=== PATIENT | female | born 1985 | race Caucasian/White ===

== ENCOUNTER → 2019-06-03 | Outpatient (CLI) | payer OTHER ==
[2019-06-03 14:25] LABS: BASO # 0.1 10^3/uL (0.0-0.2); BASO % 0.8 % (0.0-1.0); EOS # 0.1 10^3/uL (0.0-0.5); HEMATOCRIT 40.6 % (36.0-47.0); HEMOGLOBIN 13.6 g/dl (12.0-15.5); LYMPH # 2.3 10^3/uL (1.5-5.0); LYMPH % 18.2 % (24.0-44.0); MEAN CORPUSCULAR HEMOGLOBIN 30.8 pg (27.0-33.0); MEAN CORPUSCULAR HGB CONC 33.5 g/dl (32.0-36.5); MEAN CORPUSCULAR VOLUME 92.1 fl (80.0-96.0); MONO # 0.9 10^3/uL (0.0-0.8); MONO % 7.4 % (0.0-5.0); NEUTROPHILS % 71.9 % (36.0-66.0); PLATELET COUNT, AUTOMATED 421 10^3/uL (150-450); RED BLOOD COUNT 4.41 10^6/uL (4.00-5.40); WHITE BLOOD COUNT 12.5 10^3/uL (4.0-10.0)
[2019-06-03 15:14] LABS: HEPATITIS C VIRUS ABY INDEX 0.1 INDEX (<0.8); HIV 1&2 SCREEN CENTAUR NEGATIVE (NEGATIVE); RUBELLA IgG QUALITATIVE IMMUNE (IMMUNE)
[2019-06-03 15:21] LABS: CHLAMYDIA DNA AMPLIFICATION NEGATIVE (NEGATIVE); GC DNA AMPLIFICATION NEGATIVE (NEGATIVE)
== END ==
LOC: M SMT 10:27
PROVIDERS: ATTEND Advanced Practice Midwife
DX: Z34.81 Encounter for supervision of other normal pregnancy, first trimester (principal); Z3A.00 Weeks of gestation of pregnancy not specified

== ENCOUNTER → 2019-07-05 | Outpatient (CLI) | payer OTHER ==
--- NOTE | 2019-07-05 10:04 | REP ---
OB ULTRASOUND: Real-time sonographic evaluation of the gravid uterus performed. There is a single living intrauterine gestation. The estimated gestational age is 18 weeks 2 days with EDC 12/04/2019. Today's measurements indicate appropriate growth. Biometry and Growth: BPD 41 mm = 18 weeks 4 days, 57th percentile HC 148 mm = 15 weeks 6 days, 35th percentile AC 129 mm = 18 weeks 3 days, 53rd percentile FL 25 mm = 18 weeks 4 days, 27th percentile HC/AC ratio 1.15 within normal range. Estimated weight 222 grams, 37th percentile. SEEN/GROSSLY UNREMARKABLE Lateral ventricles Yes Posterior fossa Yes Upper lip Yes Four-chamber heart Yes LVOT No RVOT No Stomach Yes Cord insertion Yes Three vessel cord Yes Kidneys Yes Bladder Yes Spine Yes Cervical length: Closed and measures 4.0 cm in length. heart rate: 147 beats per minute. position: Variable. Placenta: Posterior and grade 0 with no previa or abruption. Amniotic fluid: Within normal limits Posterior lower uterine segment fibroid measures 3.4 x 1.8 x 2.1 cm. Electronically Signed by Raulito Galvan MD 07/08/2019 04:09 P
== END ==
LOC: M RAD 06:36
PROVIDERS: ATTEND Obstetrics & Gynecology
DX: Z34.80 Encounter for supervision of other normal pregnancy, unspecified trimester (principal); Z3A.18 18 weeks gestation of pregnancy

== ENCOUNTER → 2019-08-26 | Outpatient (CLI) | payer OTHER ==
[2019-08-26 17:41] LABS: HEMATOCRIT 35.2 % (36.0-47.0); MEAN CORPUSCULAR HEMOGLOBIN 29.3 pg (27.0-33.0); MEAN CORPUSCULAR HGB CONC 31.3 g/dl (32.0-36.5); MEAN CORPUSCULAR VOLUME 93.9 fl (80.0-96.0); PLATELET COUNT, AUTOMATED 353 10^3/uL (150-450); RED BLOOD COUNT 3.75 10^6/uL (4.00-5.40); WHITE BLOOD COUNT 13.9 10^3/uL (4.0-10.0)
== END ==
LOC: M PLALAB 13:17
PROVIDERS: ATTEND Obstetrics & Gynecology
DX: Z34.92 Encounter for supervision of normal pregnancy, unspecified, second trimester (principal)

== ENCOUNTER → 2019-08-26 | Outpatient (CLI) | payer OTHER ==
--- NOTE | 2019-08-27 04:10 | REP ---
Clinical: Anatomical evaluation. Comparison: 07/05/2019 . Findings: Examination demonstrates a single live intrauterine in cephalic presentation. motion is identified by technologist. Placenta is noted posterior and grade I without evidence for placenta previa or abruption. Amniotic fluid volume is normal. Cervix measures 4.4 cm in length and appears closed. No evidence for nuchal cord. Fibroid again noted measuring roughly 2.4 x 3.1 x 1.6 cm Gestational age by LMP 25 weeks 5 days with JESSICA 12/04/2019 . Gestational age by current measurements 25 weeks 3 days with JESSICA 12/06/2019 . FHR equals 134 beats per minute. Estimated weight 885 grams ( 51st percentile). Anatomical assessment demonstrates normal structures including cranium, choroid plexus, cavum, cerebellum/posterior fossa, facial features, lungs, four-chamber heart/ventricular outflow tracts, diaphragm, stomach, cord insertion/three-vessel cord, kidneys/bladder, spine, and extremities. Impression: 1. Single live intrauterine in cephalic presentation demonstrating appropriate interval growth. 2. Fibroid again noted. 3. Anatomical assessment is complete and normal. No gross abnormalities are identified.
== END ==
LOC: M WHC 14:44
PROVIDERS: ATTEND Obstetrics & Gynecology
DX: Z34.92 Encounter for supervision of normal pregnancy, unspecified, second trimester (principal); D25.9 Leiomyoma of uterus, unspecified; Z3A.25 25 weeks gestation of pregnancy

== ENCOUNTER → 2019-11-06 | Outpatient (REF) | payer OTHER | LOC: M PLALAB 08:47 | PROVIDERS: ATTEND Advanced Practice Midwife | DX: Z34.03 Encounter for supervision of normal first pregnancy, third trimester (principal) ==

== ENCOUNTER → 2019-11-21 | Outpatient (REF) | payer OTHER ==
[~2019-11-21] MED LIST: ALLE180T33 PO; PRENTAB9 PO; PROZ10CA7 PO; PROZ20CA11 PO; VITA-243 PO; VITAMIN; VITAMIN D PO
[2019-11-21 11:40] LABS: HEMATOCRIT 42.6 % (36.0-47.0); HEMOGLOBIN 13.6 g/dl (12.0-15.5); MEAN CORPUSCULAR HEMOGLOBIN 28.8 pg (27.0-33.0); MEAN CORPUSCULAR HGB CONC 31.9 g/dl (32.0-36.5); MEAN CORPUSCULAR VOLUME 90.1 fl (80.0-96.0); PLATELET COUNT, AUTOMATED 362 10^3/uL (150-450); RED BLOOD COUNT 4.73 10^6/uL (4.00-5.40); WHITE BLOOD COUNT 11.9 10^3/uL (4.0-10.0)
[2019-11-21 11:47] LABS: ALT/SGPT 22 U/L (12-78); BILIRUBIN,TOTAL 0.2 MG/DL (0.2-1.0); CREATININE FOR GFR 0.67 MG/DL (0.55-1.30); GLOMERULAR FILTRATION RATE > 60.0 (>60); LDH LACTATE DEHYDROGENASE 219 U/L (84-246); URIC ACID 4.4 MG/DL (2.6-6.0)
[2019-11-21 12:19] LABS: CREATININE,RANDOM URINE 76.5 MG/DL; TOTAL PROTEIN,RANDOM URINE 22.1 MG/DL (0.0-12.0)
== END ==
LOC: M PLALAB 09:34
PROVIDERS: ATTEND Advanced Practice Midwife
DX: O16.3 Unspecified maternal hypertension, third trimester (principal)

== ENCOUNTER 2019-11-22 12:13 | Inpatient (IN) | payer OTHER ==
[2019-11-22] VITALS (19 sets, daily range): BP systolic 121–144; BP diastolic 69–100
[~2019-11-22] VITALS: Ht 154.9 cm; Wt 80.9 kg
[~2019-11-22 12:13] MED LIST changes: -ALLE180T33 PO; +FEXOFENADINE 60 MG TAB PO SCH; -PRENTAB9 PO; -PROZ10CA7 PO; -PROZ20CA11 PO; -VITA-243 PO; -VITAMIN; -VITAMIN D PO
[2019-11-22] MEDS ORDERED: PRENTAB9 PO (12:46)
[2019-11-22] MEDS ORDERED: VITA-243 PO (12:46)
[2019-11-22] MEDS ORDERED: VITAMIN (12:46)
[2019-11-22] MEDS ORDERED: ALLE180T33 PO ×2 (12:46→13:37)
[2019-11-22] MEDS ORDERED: VITAMIN D PO (12:46)
[2019-11-22] MEDS ORDERED: PROZ10CA7 PO (12:46)
[2019-11-22] MEDS ORDERED: LACTATED RINGER'S 1000 ML IV STA (13:18)
[2019-11-22] MEDS ORDERED: miSOPROStol 50 MCG 1/2 TAB (S0191) PO SCH (13:30)
[2019-11-22] MEDS ORDERED: FEXOFENADINE 60 MG TAB PO SCH (13:30)
[2019-11-22] MEDS ORDERED: PROZ20CA11 PO (13:37)
[2019-11-22 13:39] LABS: HEMOGLOBIN 12.6 g/dl (12.0-15.5); MEAN CORPUSCULAR HGB CONC 32.3 g/dl (32.0-36.5); MEAN CORPUSCULAR VOLUME 86.7 fl (80.0-96.0); PLATELET COUNT, AUTOMATED 351 10^3/uL (150-450); WHITE BLOOD COUNT 11.8 10^3/uL (4.0-10.0)
--- NOTE | 2019-11-22 13:44 | HPEPDOC ---
Obstetrical History & Physical General Date of Admission November 22, 2019 at 12:13 History of Present Illness Chief Complaint: Gestational Hypertension, Induction of labor Information Provided By: Patient Age: 34 : 1 Term: 0 Pre-term: 0 Abortions: 0 Livin Care Care: Good Care Dating Final EDC: December 04, 2019 Final EDC by: LMP EGA at Admission: 38 (+2) Antepartum Course Height (inches): 61 Pre- weight (lbs.): 142 Admission Weight (lbs.): 178.4 Past Medical History Past Obstetrical History : Past Obstetrical History: Primg[employer] History: No pertinent history Past Medical History Surgical History: Denies/None Family History Significant Family History: Asthma, Diabetes, Heart disease, Hypertension, Other (thyroid) Social History Marital Status: Family situation: Spouse/partner home Psychosocial History: Depression * Smoker: non-smoker Alcohol: Denies Drugs: denies Abuse Violence Screening Have you been hit/kicked/slapp: No Have you been sexually assault: No Imunizations Tdap status: current Allergies Coded Allergies: No Known Allergies (Unverified , 11/22/19) Medications Scheduled Ascorbic Acid (Vitamin C) 500 Mg Tablet, 500 MG PO DAILY Fexofenadine HCl (Ariana Allergy) 180 Mg Tablet, 180 MG PO DAILY for allergy symptoms Fluoxetine HCl (Prozac) 20 Mg Capsule, 20 MG PO DAILY No.137/Iron/Folic Acd ( Vitamin Tablet) 1 Each Tablet, 1 TAB PO DAILY [Vitamin D] , 1,000 UNITS PO DAILY Physical Examination Physical Examination GENERAL: Alert and oriented times three. BREAST: . ABDOMEN: Gravid and non-tender to touch. FETUS: Is vertex (VTX) by sterile vaginal examination (SVE), fetus is vertex (VTX) by Bob. HEART RATE: Regular rate and rhythm. LUNGS: Clear to auscultation (CTA). EXTREMITIES: No edema. No clonus. Deep tendon reflexes (DTRs) + 2. Laboratory Data [facility] Laboratory Tests 2 11/22/19 12:24: Serology Scanned Report Hepatitis B Testing Pertinent Laboratoy Data Blood Type: A+ RBC Antibody Screen: Negative HIV: Negative Hepatitis B: Negative Hepatitis C: Negative Rapid Plasma Reagin: Nonreactive Rubella: Immune Chlamydia/Gonorrhea: Negative Group B Streptococcus: Positive Quad Screen Test: Declined Glucose Tolerance Test: 112 Anatomy Ultrasound Ultrasound Date: Jul 05, 2019 Placenta Location: Posterior Normal Anatomy: Yes (GILSON fibroid 3.4x1.8x2.1cm) Placenta Previa: No Estimated Weight (grams): 222 (37%) Other Ultrasounds 06/03/2019 dating 13w3d, cw dates 08/26/2019 fibroid 2.4x3.1x1.6cm, 885gm 51%, normal anatomy, appropriate growth Steroid Therapy Steroid Therapy: No Vaginal Examination Dilation: 1cm (1.5) Effacement: 50% Station: -3 Cervical Consistency: Medium Cervical Position: Middle Presentation: Cephalic presentation Assessment Heart Rate (FHR): 135 Variability: Moderate Accelerations: Positive Decelerations: None Tocometer Contractions: Yes Frequency: irregular Duration: less than 60 seconds Strength: palpated as mild Assessment/Plan Assessment Keli is a 34-year-old (G)1 para (P)0-0-0-0 at 38+2 weeks by 13-week ultrasound. Presents to Labor and Delivery (L&D) for induction of labor due to gestational hypertension. Denies severe features. Denies LOF, bleeding, regular UC. Fetus is active. 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 Diet: regular. Group B Streptococcus (GBS) positive - will treat in labor Labs and intravenous (IV) per unit protocol. Counseled on misoprostol, Pitocin and induction of labor (IOL). Lactated Ringers (LR): Bolus 500 mL, then at saline lock. Pt is considering epidural Anticipate normal spontaneous delivery (). C-S as appropriate. Nayeli Carranza CNM November 22, 2019 13:36
[2019-11-22] MEDS ORDERED: FLUoxetine 20 MG CAP PO SCH (14:00)
[2019-11-22 14:03] LABS: ALT/SGPT 21 U/L (12-78); BILIRUBIN,TOTAL 0.2 MG/DL (0.2-1.0); CREATININE FOR GFR 0.54 MG/DL (0.55-1.30); GLOMERULAR FILTRATION RATE > 60.0 (>60); LDH LACTATE DEHYDROGENASE 208 U/L (84-246); URIC ACID 4.9 MG/DL (2.6-6.0)
[2019-11-22] MEDS ORDERED: PROMETHAZINE INJ 25 MG/ML VIAL (J2550) IV ONE (19:45)
[2019-11-22] MEDS ORDERED: BUTORPHANOL 2 MG/ML INJ (J0595) IV ONE (19:45)
[2019-11-22] MEDS ORDERED: OXYTOCIN DRIP 30 UNITS in IV 1 EA IV SCH (19:45)
--- NOTE | 2019-11-22 19:45 | IPNPDOC ---
Text Note Date of Service The patient was seen on 11/22/19. NOTE Progress Remains comfortable, rating UC 2/10 UC Q 1.5-3 minutes, mild x 60 seconds FH 135, Cat I SVE 280/-2 Cooks catheter placed, inflated with 60/40ml of NS. Start pitocin augmentation. VS,Fishbone, I+O VS, Fishbone, I+O Laboratory Tests 11/22/19 13:26 Vital Signs Date Time Temp Pulse Resp B/P (MAP) Pulse Ox O2 Delivery O2 Flow Rate FiO2 11/22/19 14:40 78 133/84 (100) 11/22/19 12:55 98.8 18 Nayeli Carranza CNM November 22, 2019 19:45
[2019-11-22] MEDS ORDERED: PENICILLIN G POTASSIUM 5 MU VIAL As Ordered ONE (19:58)
[2019-11-22] MEDS: LR 1,000 ML IV SCH (20:16)
[2019-11-22] MEDS ORDERED: PENICILLIN G POTASSIUM IV 5 MU in D5W MINI-BAG PLUS 100 ML IV STA (20:21)
[2019-11-23] VITALS (80 sets, daily range): BP systolic 80–179; BP diastolic 52–107
--- NOTE | 2019-11-23 03:21 | IPNPDOC ---
Text Note Date of Service The patient was seen on 11/23/19. NOTE Progress SROM clear fluid Pitocin @ 10 mu FH 125, Cat I UC 2-4 minutes apart SVE /-2, pubic arch noted to be tight, cervix remains posterior Continue IOL. Will update physician Jose Martin FREEMAN, I+O Jose Martin FREEMAN I+O Laboratory Tests 11/22/19 13:26 Vital Signs Date Time Temp Pulse Resp B/P (MAP) Pulse Ox O2 Delivery O2 Flow Rate FiO2 11/22/19 21:50 18 11/22/19 14:40 78 133/84 (100) 11/22/19 12:55 98.8 Nayeli Carranza CNM November 23, 2019 03:21
[2019-11-23] MEDS ORDERED: FENTANYL 2MCG/ML ROPIVACAINE 0.2% IN 0.9% NACL 100ML IVBAG As Ordered ONE (04:12)
[2019-11-23] MEDS: LR 1,000 ML IV SCH ×3 (04:16→13:52)
[2019-11-23] MEDS: PENICILLIN G POTASSIUM IV 2.5 MU in IV 1 EA IV SCH ×5 (04:16→16:12)
[2019-11-23] MEDS: FENTANYL/ROPIVACAINE/NACL BAG 100 ML EPIDURAL SCH ×2 (04:22→13:42)
[2019-11-23] MEDS ORDERED: diphenhydrAMINE 50MG/ML VIAL (J1200) IV PRN (04:22)
[2019-11-23] MEDS ORDERED: REFRIGERATOR IV KEYS XX PRN (04:22)
[2019-11-23] MEDS ORDERED: ePHEDrine SULFATE 25 MG/5 ML(5MG/ML) SYRINGE IV PRN (04:22)
[2019-11-23] MEDS ORDERED: ONDANSETRON 4MG/2ML VIAL IV PRN (04:22)
[2019-11-23] MEDS ORDERED: EPIDURAL COMMENT XX SCH (04:22)
[2019-11-23] MEDS ORDERED: EPIDURAL/PCA KEYS XX PRN (04:22)
[2019-11-23] MEDS ORDERED: LACTATED RINGER'S 1000 ML IV PRN (04:22)
[2019-11-23] MEDS ORDERED: NALOXONE INJ 0.4MG/1ML VIAL (J2310 PER 1MG) IV PRN (04:22)
[2019-11-23] MEDS ORDERED: OXYTOCIN 30 UNITS IN 0.9% NaCl 500ML IV BAG (J2590) As Ordered ONE (17:45)
[2019-11-23] MEDS ORDERED: FEXOFENADINE 60 MG TAB PO SCH (18:00)
[2019-11-23] MEDS ORDERED: FLUoxetine 20 MG CAP PO SCH (18:00)
[2019-11-23] MEDS ORDERED: MEASLES,MUMPS,RUBELLA VACCINE INJ (MMR-II) (90707) SC SCH (18:30)
[2019-11-23] MEDS ORDERED: IBUPROFEN 600 MG TAB PO PRN (18:30)
[2019-11-23] MEDS ORDERED: IBUPROFEN 800 MG TAB PO PRN (18:30)
[2019-11-23] MEDS ORDERED: DOCUSATE SODIUM 100 MG CAP PO PRN (18:30)
[2019-11-23] MEDS ORDERED: RHOGAM 300 MCG (1500 IU) INJ (J2790) IM SCH (18:30)
[2019-11-23] MEDS ORDERED: ACETAMINOPHEN 500 MG TAB PO PRN (18:30)
[2019-11-23] MEDS ORDERED: ACETAMINOPHEN TAB 650MG DOSE (2X325MG) PO PRN (18:30)
[2019-11-23] MEDS ORDERED: PROMETHAZINE 25 MG TAB PO PRN (18:30)
[2019-11-23] MEDS ORDERED: OXYTOCIN DRIP 30 UNITS in IV 1 EA IV SCH (18:30)
[2019-11-23] MEDS ORDERED: miSOPROStol 200 MCG TAB (S0191) PR ONE (18:30)
[2019-11-23] MEDS ORDERED: DIBUCAINE 1% OINTMENT 30GM TOP PRN (18:30)
[2019-11-23] MEDS ORDERED: UNASYN 3 GM VIAL As Ordered ONE (18:31)
[2019-11-23] MEDS: FLUoxetine 20 MG CAP PO SCH (18:56)
[2019-11-23] MEDS: FEXOFENADINE 60 MG TAB PO SCH (18:58)
[2019-11-23] MEDS ORDERED: AMPICILLIN SOD/SULBACTAM SOD 3 GM in D5W MINI-BAG PLUS 100 ML IV ONE (19:00)
[2019-11-23] MEDS ORDERED: LR 1,000 ML IV SCH (19:00)
[2019-11-24 06:00] VITALS: BP 129/73
[2019-11-24] MEDS: PRENATAL VITAMINS CHEWABLE TABLET PO SCH (09:00)
[2019-11-24] MEDS: FLUoxetine 20 MG CAP PO SCH (17:26)
[2019-11-24] MEDS: FEXOFENADINE 60 MG TAB PO SCH (17:26)
[2019-11-24 18:02] VITALS: BP 122/81
[2019-11-25 06:00] VITALS: BP 123/84
[2019-11-25] MEDS: PRENATAL VITAMINS CHEWABLE TABLET PO SCH (07:52)
== END 2019-11-25 12:40 | disposition home or self-care (01) | DRG 807 ==
LOC: M LDI 12:13 → M OBS 11-23 20:57
PROVIDERS: ADMIT Advanced Practice Midwife; ATTEND Obstetrics & Gynecology
PROC: 3E0P7GC Introduction of Other Therapeutic Substance into Female Reproductive, Via Natural or Artificial Opening (ICD-10-PCS; 2019-11-22)
PROC: 10E0XZZ Delivery of Products of Conception, External Approach (ICD-10-PCS; principal; 2019-11-23)
PROC: 10D17Z9 Manual Extraction of Products of Conception, Retained, Via Natural or Artificial Opening (ICD-10-PCS; 2019-11-23)
PROC: 0HQ9XZZ Repair Perineum Skin, External Approach (ICD-10-PCS; 2019-11-23)
DX: O14.94 Unspecified pre-eclampsia, complicating childbirth (principal); Z37.0 Single live birth; Z3A.38 38 weeks gestation of pregnancy; O99.824 Streptococcus B carrier state complicating childbirth; O69.1XX0 Labor and delivery complicated by cord around neck, with compression, not applicable or unspecified; O73.0 Retained placenta without hemorrhage; O70.0 First degree perineal laceration during delivery

== ENCOUNTER 2019-12-07 16:13 | Emergency (ER) | payer OTHER ==
[~2019-12-07] VITALS: Ht 154.9 cm; Wt 71.1 kg
[~2019-12-07 16:13] MED LIST changes: +ALLE180T33 PO; -FEXOFENADINE 60 MG TAB PO SCH; +PRENTAB9 PO; +PROZ10CA7 PO; +PROZ20CA11 PO; +VITA-243 PO; +VITAMIN; +VITAMIN D PO
[2019-12-07 17:06] LABS: BASO # 0.1 10^3/uL (0.0-0.2); EOS # 0.1 10^3/uL (0.0-0.5); EOS % 0.6 % (0.0-3.0); HEMATOCRIT 36.2 % (36.0-47.0); HEMOGLOBIN 11.6 g/dl (12.0-15.5); LYMPH # 1.7 10^3/uL (1.5-5.0); LYMPH % 14.5 % (24.0-44.0); MEAN CORPUSCULAR VOLUME 87.4 fl (80.0-96.0); MONO # 0.6 10^3/uL (0.0-0.8); MONO % 4.7 % (0.0-5.0); NEUTROPHILS # 9.2 10^3/uL (1.5-8.5); NEUTROPHILS % 78.9 % (36.0-66.0); PLATELET COUNT, AUTOMATED 591 10^3/uL (150-450); RED BLOOD COUNT 4.14 10^6/uL (4.00-5.40); WHITE BLOOD COUNT 11.7 10^3/uL (4.0-10.0)
--- NOTE | 2019-12-07 17:17 | REPVR ---
PROCEDURE INFORMATION: Exam: CT Head Without Contrast Exam date and time: 12/07/2019 4:57 PM Age: 34 years old Clinical indication: Weakness, facial; Additional info: CVA TECHNIQUE: Imaging protocol: Computed tomography of the head without contrast. Axial and coronal reformatted images were created and reviewed. Radiation optimization: All CT scans at this facility use at least one of these dose optimization techniques: automated exposure control; mA and/or kV adjustment per patient size (includes targeted exams where dose is matched to clinical indication); or iterative reconstruction. Other technique: STROKE PROTOCOL was implemented. COMPARISON: No relevant prior studies available. FINDINGS: Brain: No CT evidence of acute intracranial hemorrhage or acute territorial infarction. No significant mass effect or midline shift. Basal cisterns patent. Ventricles: Normal in size and configuration. Bones/joints: No acute osseous abnormality. Sinuses: Grossly unremarkable. Mastoid air cells: Grossly unremarkable. Soft tissues: Grossly unremarkable. IMPRESSION: No CT evidence of acute intracranial pathology. ASSESSMENT: ASPECTS (Corin Stroke Program Early CT Score) is 10. Electronically signed by: Bacilio Márquez On 12/07/2019 17:17:18 PM
[2019-12-07 17:25] LABS: ALBUMIN 3.3 GM/DL (3.2-5.2); ALT/SGPT 57 U/L (12-78); BILIRUBIN,DIRECT < 0.1 MG/DL (0.0-0.2); BILIRUBIN,TOTAL 0.4 MG/DL (0.2-1.0); FREE T4 0.98 NG/DL (0.76-1.46); THYROID STIMULATING HORMONE 0.572 uIU/ML (0.358-3.740); TOTAL PROTEIN 7.3 GM/DL (6.4-8.2)
--- NOTE | 2019-12-07 19:13 | REPVR ---
PROCEDURE INFORMATION: Exam: MR Head Without Contrast Exam date and time: 12/07/2019 6:59 PM Age: 34 years old Clinical indication: Weakness, facial; Patient HX: PT states RT ear and head pain, RT sided facial droop and loss of taste. ; Additional info: R facial droop TECHNIQUE: Imaging protocol: MR of the head without contrast. COMPARISON: CT Head without contrast 12/07/2019 5:00 PM FINDINGS: Brain: Normal. No acute infarct. No hemorrhage. No significant white matter disease. No edema. Ventricles: Normal. No ventriculomegaly. Bones/joints: Unremarkable. Soft tissues: Unremarkable. Sinuses: Normal as visualized. No acute sinusitis. Mastoid air cells: Normal as visualized. No mastoid effusion. Orbits: Unremarkable. IMPRESSION: No acute findings. Electronically signed by: Bacilio Márquez On 12/07/2019 19:12:20 PM
--- NOTE | 2019-12-07 19:13 | REPVR ---
PROCEDURE INFORMATION: Exam: MR Angiogram Head Without Contrast, Arteries Exam date and time: 12/07/2019 6:59 PM Age: 34 years old Clinical indication: Other: RT facial droop; Patient HX: PT states RT ear and head pain, RT sided facial droop and loss of taste. ; Additional info: R facial droop TECHNIQUE: Imaging protocol: MR angiogram head without contrast. Exam focused on the arteries. 3D rendering: MIP and/or 3D reconstructed images were created by the technologist. COMPARISON: CT Head without contrast 12/07/2019 5:00 PM FINDINGS: Anterior cerebral arteries: Intracranial segment is patent with no significant stenosis. No aneurysm. Right internal carotid artery: Intracranial segment is patent with no significant stenosis. No aneurysm. Right middle cerebral artery: No occlusion or significant stenosis. No aneurysm. Right posterior cerebral artery: No occlusion or significant stenosis. No aneurysm. Right vertebral artery: No occlusion or significant stenosis. No aneurysm. Left internal carotid artery: Intracranial segment is patent with no significant stenosis. No aneurysm. Left middle cerebral artery: No occlusion or significant stenosis. No aneurysm. Left posterior cerebral artery: No occlusion or significant stenosis. No aneurysm. Left vertebral artery: No occlusion or significant stenosis. No aneurysm. Basilar artery: No occlusion or significant stenosis. No aneurysm. IMPRESSION: No stenosis or occlusion. Electronically signed by: Bacilio Márquez On 12/07/2019 19:13:32 PM
[2019-12-07] MEDS ORDERED: PRED20TA PO (19:26)
[2019-12-07 19:30] VITALS: BP 119/81
[2019-12-07] MEDS ORDERED: dexameTHASONE 20MG/5ML VIAL (J1100 PER 1MG) IV ONE (19:30)
--- NOTE | 2019-12-08 21:03 | ECGEPIP ---
[facility] - ED Test Date: 2019-12-07 Pat Name: DON MAYEN Department: Room: - Gender: Female Critical Care Rn: [id number] : [id number] Requested By: GARO Gallardo Order Number: [id number] Reading MD: Radha Dumont Measurements Intervals [place] Rate: 77 P: 25 SD: 154 QRS: 21 QRSD: 86 T: 30 QT: 372 QTc: 421 Interpretive Statements SINUS RHYTHM NO PRIOR Electronically Signed on 12-08-2019 21:03:06 EDT by Radha Dumont
== END 2019-12-07 19:43 | disposition home or self-care (01) ==
LOC: M ED 16:13
DX: G51.0 Bell's palsy (principal); G47.30 Sleep apnea, unspecified; J30.89 Other allergic rhinitis; Z79.899 Other long term (current) drug therapy

== ENCOUNTER → 2019-12-13 | Outpatient (CLI) | payer OTHER ==
[~2019-12-13] MED LIST changes: +PRED20TA PO
[2019-12-13 13:16] LABS: C REACTIVE PROTEIN QUANTITATIV 0.81 MG/DL (0.00-0.30)
[2019-12-13 13:29] LABS: VITAMIN B12 LEVEL 852 PG/ML
[2019-12-13 13:31] LABS: FOLATE > 24.0 NG/ML
[2019-12-13 14:09] LABS: HIV 1&2 SCREEN CENTAUR NEGATIVE (NEGATIVE)
[2019-12-15 00:06] LABS: Lyme Disease IgG/IgM Antibodie <0.91 ISR (0.00-0.90); Lyme Disease IgM Ab Quantitati <0.80 index (0.00-0.79)
== END ==
LOC: M PLALAB 10:59
PROVIDERS: ATTEND Physician Assistant
DX: G51.0 Bell's palsy (principal)

== ENCOUNTER → 2020-02-26 | Outpatient (REF) | payer OTHER | LOC: M SFHCWAGY 10:29 | PROVIDERS: ATTEND Obstetrics & Gynecology | DX: Z12.4 Encounter for screening for malignant neoplasm of cervix (principal) ==

== ENCOUNTER → 2021-04-07 | Outpatient (REF) | payer OTHER | LOC: M SFHCWAGY 12:59 | PROVIDERS: ATTEND Obstetrics & Gynecology | DX: Z01.42 Encounter for cervical smear to confirm findings of recent normal smear following initial abnormal smear (principal) ==

== ENCOUNTER → 2022-02-01 | Outpatient (CLI) | payer OTHER ==
[2022-02-01 15:12] LABS: BASO # 0.1 10^3/uL (0.0-0.2); EOS # 0.1 10^3/uL (0.0-0.5); EOS % 1.4 % (0.0-3.0); HEMATOCRIT 38.6 % (36.0-47.0); HEMOGLOBIN 12.4 g/dl (12.0-15.5); LYMPH # 2.1 10^3/uL (1.5-5.0); LYMPH % 23.8 % (24.0-44.0); MEAN CORPUSCULAR HGB CONC 32.1 g/dl (32.0-36.5); MEAN CORPUSCULAR VOLUME 90.4 fl (80.0-96.0); MONO # 0.8 10^3/uL (0.0-0.8); MONO % 8.9 % (2.0-8.0); NEUTROPHILS # 5.6 10^3/uL (1.5-8.5); NEUTROPHILS % 64.6 % (36.0-66.0); PLATELET COUNT, AUTOMATED 411 10^3/uL (150-450); RED BLOOD COUNT 4.27 10^6/uL (4.00-5.40); WHITE BLOOD COUNT 8.7 10^3/uL (4.0-10.0)
[2022-02-01 18:30] LABS: ALT/SGPT 20 U/L (12-78); BILIRUBIN,TOTAL 0.7 MG/DL (0.2-1.0); BLOOD UREA NITROGEN 11 MG/DL (7-18); CALCIUM LEVEL 9.4 MG/DL (8.5-10.1); CARBON DIOXIDE LEVEL 27 MEQ/L (21-32); CHLORIDE LEVEL 106 MEQ/L (98-107); CHOLESTEROL LEVEL 187 MG/DL (<200); CHOLESTEROL RISK RATIO 2.633 (<5); CREATININE FOR GFR 0.66 MG/DL (0.55-1.30); FREE T4 0.82 NG/DL (0.76-1.46); GLOMERULAR FILTRATION RATE > 60.0 (>60); GLUCOSE, FASTING 82 MG/DL (70-100); HDL CHOLESTEROL 71 MG/DL (>40); LDL CHOLESTEROL 104 MG/DL (<100); NON-HDL-C 116 MG/DL; POTASSIUM SERUM 4.4 MEQ/L (3.5-5.1); SODIUM LEVEL 136 MEQ/L (136-145); TOTAL PROTEIN 7.6 GM/DL (6.4-8.2); TRIGLYCERIDES LEVEL 60 MG/DL (<150)
== END ==
LOC: M PLALAB 13:01
PROVIDERS: ATTEND Nurse Practitioner Adult Health
DX: G47.33 Obstructive sleep apnea (adult) (pediatric) (principal); I10 Essential (primary) hypertension

== ENCOUNTER → 2022-04-15 | Outpatient (REF) | payer OTHER | LOC: M PLALAB 10:12 | PROVIDERS: ATTEND Nurse Practitioner Family | DX: Z12.4 Encounter for screening for malignant neoplasm of cervix (principal) | CPT/HCPCS: 87624; G0123 ==

== ENCOUNTER → 2022-12-29 | Outpatient (CLI) | payer OTHER ==
[2022-12-29 17:50] LABS: BASO # 0.1 10^3/uL (0.0-0.2); BASO % 0.7 % (0.0-1.0); EOS # 0.1 10^3/uL (0.0-0.5); HEMATOCRIT 36.5 % (36.0-47.0); HEMOGLOBIN 11.7 g/dl (12.0-15.5); LYMPH # 3.1 10^3/uL (1.5-5.0); LYMPH % 24.5 % (24.0-44.0); MEAN CORPUSCULAR HEMOGLOBIN 28.3 pg (27.0-33.0); MEAN CORPUSCULAR HGB CONC 32.1 g/dl (32.0-36.5); MEAN CORPUSCULAR VOLUME 88.4 fl (80.0-96.0); MONO # 0.7 10^3/uL (0.0-0.8); MONO % 5.9 % (2.0-8.0); NEUTROPHILS # 8.5 10^3/uL (1.5-8.5); NEUTROPHILS % 67.5 % (36.0-66.0); PLATELET COUNT, AUTOMATED 455 10^3/uL (150-450); RED BLOOD COUNT 4.13 10^6/uL (4.00-5.40); WHITE BLOOD COUNT 12.5 10^3/uL (4.0-10.0)
[2022-12-29 18:16] LABS: FREE T4 0.88 NG/DL (0.89-1.76); THYROID STIMULATING HORMONE 1.17 uIU/ML (0.55-4.78); TOTAL 25(OH) VITAMIN D 31.4 NG/ML (20.0-100.0)
== END ==
LOC: M PLALAB 15:54
PROVIDERS: ATTEND Family Medicine
DX: F41.1 Generalized anxiety disorder (principal); F32.1 Major depressive disorder, single episode, moderate; R53.83 Other fatigue

== ENCOUNTER → 2023-06-26 | Outpatient (REF) | payer OTHER | LOC: M SFHCWAGY 15:42 | PROVIDERS: ATTEND Nurse Practitioner Family | DX: Z12.4 Encounter for screening for malignant neoplasm of cervix (principal) | CPT/HCPCS: 87624; G0123 ==

== ENCOUNTER → 2023-08-11 | Outpatient (CLI) | payer OTHER ==
[2023-08-11 18:13] LABS: BASO # 0.1 10^3/uL (0.0-0.2); BASO % 1.1 % (0.0-1.0); EOS # 0.2 10^3/uL (0.0-0.5); EOS % 1.4 % (0.0-3.0); HEMATOCRIT 37.9 % (36.0-47.0); HEMOGLOBIN 12.6 g/dl (12.0-15.5); LYMPH # 2.7 10^3/uL (1.5-5.0); LYMPH % 23.4 % (24.0-44.0); MEAN CORPUSCULAR HEMOGLOBIN 30.1 pg (27.0-33.0); MEAN CORPUSCULAR HGB CONC 33.2 g/dl (32.0-36.5); MEAN CORPUSCULAR VOLUME 90.5 fl (80.0-96.0); MONO # 0.6 10^3/uL (0.0-0.8); MONO % 4.8 % (2.0-8.0); NEUTROPHILS # 7.9 10^3/uL (1.5-8.5); NEUTROPHILS % 68.9 % (36.0-66.0); PLATELET COUNT, AUTOMATED 407 10^3/uL (150-450); RED BLOOD COUNT 4.19 10^6/uL (4.00-5.40); WHITE BLOOD COUNT 11.4 10^3/uL (4.0-10.0)
[2023-08-11 18:29] LABS: IRON (FE) 68 UG/DL (50-170); PERCENT SATURATION 15.5 % (13.2-45.0); TOTAL IRON BINDING CAPACITY 439 UG/DL (250-425)
[2023-08-11 18:30] LABS: FOLATE > 24.0 NG/ML (>5.4)
[2023-08-11 18:31] LABS: FERRITIN 13.4 NG/ML (7.3-270.7); THYROID PEROXIDASE ANTIBODY 39 U/ML (<60.0); THYROID STIMULATING HORMONE 0.836 uIU/ML (0.55-4.78); TOTAL 25(OH) VITAMIN D 35.1 NG/ML (20.0-100.0)
[2023-08-11 18:32] LABS: FREE T4 0.87 NG/DL (0.89-1.76); VITAMIN B12 LEVEL 447 PG/ML (211-911)
[2023-08-11 18:33] LABS: MONO REFLEX EBV VCA IgM NEGATIVE (NEGATIVE)
== END ==
LOC: M PLALAB 16:16
PROVIDERS: ATTEND Family Medicine
DX: R53.83 Other fatigue (principal)

== ENCOUNTER → 2024-10-30 | Outpatient (CLI) | payer OTHER | LOC: M WHC 14:52 | PROVIDERS: ATTEND Nurse Practitioner Family | DX: N63.32 Unspecified lump in axillary tail of the left breast (principal) | CPT/HCPCS: 76642; 77066; G0279 ==

== ENCOUNTER → 2024-11-13 | Outpatient (CLI) | payer OTHER ==
[2024-11-13 08:01] VITALS: TEMP 98.3
[2024-11-13 08:37] VITALS: BP 128/84; O2SAT 100
== END ==
LOC: M WHCPRO 07:59
PROVIDERS: ATTEND Nurse Practitioner Family
DX: R92.8 Other abnormal and inconclusive findings on diagnostic imaging of breast (principal); N63.21 Unspecified lump in the left breast, upper outer quadrant; N60.22 Fibroadenosis of left breast

== ENCOUNTER → 2024-12-11 | Outpatient (CLI) | payer OTHER ==
[2024-12-11 13:02] LABS: HEMATOCRIT 38.4 % (36.0-47.0); HEMOGLOBIN 12.7 g/dl (12.0-15.5)
== END ==
LOC: M PLALAB 11:42
PROVIDERS: ATTEND Surgery
DX: N63.21 Unspecified lump in the left breast, upper outer quadrant (principal)

== ENCOUNTER → 2025-07-21 | Outpatient (CLI) | payer OTHER ==
[~2025-07-21] MED LIST changes: +DULO1CAP6 PO; +FLUTISP NARES; +LARI1TAB5 PO; +OXYC-517 PO; +PROZ10CA11 PO; -PROZ10CA7 PO; -PROZ20CA11 PO; +PROZ20CA25 PO; +SPIR50TA4 PO
== END ==
LOC: M WHC 09:55
PROVIDERS: ATTEND Nurse Practitioner Family
DX: Z12.31 Encounter for screening mammogram for malignant neoplasm of breast (principal); Z53.9 Procedure and treatment not carried out, unspecified reason